=== PATIENT | female | born 1975 | race Caucasian/White ===

== ENCOUNTER 2016-08-29 23:34 | Emergency (ER) | payer OTHER ==
[~2016-08-29] VITALS: Ht 162.6 cm; Wt 54.4 kg
[~2016-08-29 23:34] MED LIST: NO MEDS
--- NOTE | 2016-08-29 23:40 | NUR ---
To bed 7 a 40 yo female bibself with c/o throbbing frontal headache at 8/10, with nausea, and dizziness. Patient is aaox4, ambulatory. Per patient he had a facial procedure yesterday, "they draw blood in my arm, put it to a machine that spins, then they get good cells and injected to my face and both my hands (dorsum)." Patient took tramadol at home at 1600, and said pain just got worse. Comfort measures initiated. No s/s of acute distress. Breathing even and unlabored. Gowned. Awaiting for er md wallace.
[2016-08-30] MEDS ORDERED: ACETAMINOPHEN 325 MG TABLET PO ONE (00:30)
[2016-08-30] MEDS ORDERED: ACETAMINOPHEN ES 500 MG TABLET ONE (00:33)
--- NOTE | 2016-08-30 01:37 | NUR ---
Patient discharged to home in stable condition. Written and verbal after care instructions given. Patient verbalizes understanding of instruction. Patient is ambulatory with steady gait.
[2016-08-30 01:38] VITALS: BP 99/54
== END 2016-08-30 01:39 | disposition home or self-care (01) ==
LOC: ER 23:38
DX: R51 Headache (principal)
CPT/HCPCS: 99283; A4606; Z7610

== ENCOUNTER 2017-12-11 20:27 | Emergency (ER) | payer OTHER ==
[~2017-12-11] VITALS: Ht 162.6 cm; Wt 52.2 kg
[2017-12-11 20:30] VITALS: BP 127/74
== END 2017-12-11 23:06 | disposition home or self-care (01) ==
LOC: ER 20:34
DX: N60.01 Solitary cyst of right breast (principal)
CPT/HCPCS: 76642-TC; A4606; Z7610

== ENCOUNTER 2018-11-17 09:41 | Emergency (ER) | payer OTHER ==
[~2018-11-17] VITALS: Ht 154.9 cm; Wt 49.9 kg
[2018-11-17 10:47] VITALS: BP 134/81
== END 2018-11-17 11:03 | disposition home or self-care (01) ==
LOC: ER 09:41
DX: M54.12 Radiculopathy, cervical region (principal)
CPT/HCPCS: 93971-TC

== ENCOUNTER 2019-03-19 23:38 | Emergency (ER) | payer SELFPAY ==
[~2019-03-19] VITALS: Ht 160 cm; Wt 51.7 kg
--- NOTE | 2019-03-19 23:45 | NUR ---
BIBS. L POSTERIOR THIGH PAIN 3/10 SINCE YESTERDAY. DENIES TRAUMA TO ER BED 2
--- NOTE | 2019-03-19 23:56 | NUR ---
AT BEDSIDE FOR EVAL.
--- NOTE | 2019-03-20 00:07 | NUR ---
Patient discharged to home in stable condition. Written and verbal after care instructions given. Patient verbalizes understanding of instruction.
[2019-03-20 00:13] VITALS: BP 134/80
== END 2019-03-20 00:13 | disposition home or self-care (01) ==
LOC: ER 23:38
DX: M54.30 Sciatica, unspecified side (principal); M62.830 Muscle spasm of back